=== PATIENT | female | born 1970 | race African-American/Black ===

== ENCOUNTER 2018-12-26 11:54 | Emergency (ER) | payer OTHER ==
[~2018-12-26] VITALS: Ht 167.6 cm; Wt 63.5 kg
[~2018-12-26 11:54] MED LIST: BACTRIM DS TAB1 EAC1 ORAL; KEFLEX500 MG ORAL; NKM; PROAIR HFA8.5 GM INH; PROMETHAZINE-D118 ML ORAL; TESSALON PERLE100 M2 ORAL; ZITHROMAX250 MG ORAL
[2018-12-26 12:13] VITALS: BP 113/74
--- NOTE | 2018-12-26 12:23 | NUR ---
ED Nurse Note: PT FROM HOME WALKED IN DUE TO VAGINAL PAIN X 2 DAYS. DENIES VAGINAL BLEEDING OR DISCAHRGE. LAST SEUAL INTERCOURSE ABOUT 3 WEEKS AGO. AAO X 4, AND AMBULATORY.
[2018-12-26] MEDS ORDERED: Omnipaque-300 100ml vial INJ PRN (12:45)
--- NOTE | 2018-12-26 13:06 | NUR ---
ED Nurse Note: COLLECTED BLOOD/URINE THEN SENT.
--- NOTE | 2018-12-26 13:32 | Emergency Room Report ---
History of Present Illness General Chief Complaint: Pain Present Illness HPI 48-year-old female with history of ovarian cyst here complaining of 2 days of sudden onset of a 10 out of 10 vaginal pain. Patient is rating the pain 10 out of 10 and reporting it is shooting. Denies any urinary symptoms such as dysuria and frequency. Denies vaginal discharge and pruritus. Patient reports that she was last sexually active 3 weeks ago. Last menstrual period was 3 weeks ago and regular. Patient is sitting comfortably with stable vital signs. Denies syncope, diffuse abdominal pain, chest pain and shortness of breath. Patient complains of occasional nausea x2 days. Denies diarrhea and other associated symptoms. Has taken ibuprofen for symptom relief. Denies hematuria , vaginal bleeding, spotting, cramping. Allergies: Coded Allergies: No Known Allergies (Unverified , 02/08/14) Patient History Past Medical History: see triage record Past Surgical History: unable to obtain Pertinent Family History: none Last Menstrual Period: 12/06/2018 Now: No - tubal ligation 1997 : 4 Para: 4 Immunizations: UTD Reviewed Nursing Documentation: PMH: Agreed; PSxH: Agreed Review of Systems All Other Systems: negative except mentioned in HPI Physical Exam Vital Signs Date Time Temp Pulse Resp B/P (MAP) Pulse Ox O2 Delivery O2 Flow Rate FiO2 12/26/18 12:13 98.1 63 15 113/74 98 Room Air Sp02 EP Interpretation: reviewed, normal General Appearance: no apparent distress, alert, GCS 15, non-toxic Head: normocephalic, atraumatic Eyes: bilateral eye normal inspection, bilateral eye PERRL ENT: hearing grossly normal, normal pharynx, no angioedema, normal voice Neck: full range of motion, supple, supple/symm/no masses Respiratory: chest non-tender, lungs clear, normal breath sounds, no wheezing, speaking full sentences Cardiovascular #1: regular rate, rhythm, no edema, no murmur, normal capillary refill Gastrointestinal: normal bowel sounds, non tender, soft, non-distended, no guarding, no rebound Rectal: deferred Genitourinary: no CVA tenderness Musculoskeletal: back normal, digits/nails normal, gait/station normal, non- tender, no calf tenderness, pelvis stable Neurologic: alert, oriented x3, responsive, motor strength/tone normal, sensory intact, speech normal Psychiatric: judgement/insight normal, memory normal, mood/affect normal, no suicidal/homicidal ideation Skin: no rash Lymphatic: no adenopathy Medical Decision Making PA Attestation All my diagnosis and treatment plans were reviewed ad discussed with my supervising physician Dr. Curry Diagnostic Impression: Primary Impression: Pelvic pain ER Course 48-year-old female with history of ovarian cyst here complaining of 2 days of sudden onset of a 10 out of 10 vaginal pain. Patient is rating the pain 10 out of 10 and reporting it is shooting. Denies any urinary symptoms such as dysuria and frequency. Denies vaginal discharge and pruritus. Patient reports that she was last sexually active 3 weeks ago. Last menstrual period was 3 weeks ago and regular. Patient is sitting comfortably with stable vital signs. Denies syncope, diffuse abdominal pain, chest pain and shortness of breath. Patient complains of occasional nausea x2 days. Denies diarrhea and other associated symptoms. Has taken ibuprofen for symptom relief. Denies hematuria , vaginal bleeding, spotting, cramping. Ddx considered but are not limited to: appendicitis, cholecystis, gastritis, gastroenteritis, UTI, pyelonephritis, SBO, diverticulitis, influenza with GI manifestation,uterine fibroids, ruptured ovarian cyst, non-ruptured ovarian cyst Vital signs: are WNL, pt. is afebrile H&PE are most consistent with: pelvic pain ORDERS: abdominal CT, cbc, cmp, ua, urine preg, ibuprofen ED INTERVENTIONS: motrin DISCHARGE: At this time pt. is stable for d/c to home. Will provide printed patient care instructions, and any necessary prescriptions. Care plan and follow up instructions have been discussed with the patient prior to discharge. Take medication as directed, follow-up with your EMPLOYEE DEVELOPMENT DIRECTOR for further assessment. At this time no uterine fibroids or ovarian cyst noted. You may benefit from further work-up by your POLITICAL SCIENCE PROFESSOR and transvaginal ultrasound. If worsening symptoms return to the emergency room. CT/MRI/US Diagnostic Results CT/MRI/US Diagnostic Results : Imaging Test Ordered: ct abd pelvis with contrast Impression CT ABDOMEN & PELVIS With Contrast: Question possible mild wall thickening and pericolonic stranding along the ascending colon and hepatic flexure, difficult to exclude a mild colitis, clinically correlate No bowel dilation or free air Normal caliber appendix without secondary signs Trace pelvic free fluid Small band of atelectasis or scar at the left base Abdominal solid organs, gallbladder and abdominal aorta appear within limits Last Vital Signs Date Time Temp Pulse Resp B/P (MAP) Pulse Ox O2 Delivery O2 Flow Rate FiO2 12/26/18 12:13 98.1 63 15 113/74 (87) 98 Room Air Disposition: HOME, SELF-CARE Condition: Stable Patient Instructions: Pelvic Pain, Female, [id number] Additional Instructions: Take medication as directed, follow-up with your EMPLOYEE DEVELOPMENT DIRECTOR for further assessment. At this time no uterine fibroids or ovarian cyst noted. You may benefit from further work-up by your POLITICAL SCIENCE PROFESSOR and transvaginal ultrasound. If worsening symptoms return to the emergency room. Matt Loza Dec 26, 2018 13:32
[2018-12-26 13:45] LABS: APPEARANCE,URINE CLEAR; BILIRUBIN, URINE NEGATIVE (NEGATIVE); COLOR,URINE PALE YELLOW; GLUCOSE, URINE (UA) NEGATIVE (NEGATIVE); KETONES,URINE NEGATIVE (NEGATIVE); LEUKOCYTE ESTERASE ,URINE NEGATIVE (NEGATIVE); NITRITE,URINE NEGATIVE (NEGATIVE); PH,URINE 7 (4.5-8.0); PROTEIN,URINE NEGATIVE (NEGATIVE); UROBILINOGEN,URINE NORMAL MG/DL (0.0-1.0)
[2018-12-26 13:51] LABS: BASOPHILS % (AUTO) 1.6 % (0.0-2.0); EOSINOPHILS % (AUTO) 0.7 % (0.0-3.0); HEMATOCRIT 39.5 % (37.0-47.0); HEMOGLOBIN 12.7 G/DL (12.0-16.0); LYMPHOCYTES % (AUTO) 34.4 % (20.0-45.0); MEAN CORPUSCULAR VOLUME 80 FL (80-99); MONOCYTES % (AUTO) 7.8 % (1.0-10.0); NEUTROPHILS % (AUTO) 55.5 % (45.0-75.0); PLATELET COUNT 251 K/UL (150-450); RED BLOOD COUNT 4.92 M/UL (4.20-5.40); RED CELL DISTRIBUTION WIDTH 14.1 % (11.6-14.8); WHITE BLOOD COUNT 7.2 K/UL (4.8-10.8)
[2018-12-26 13:54] LABS: ANION GAP 3 mmol/L (5-15); BLOOD UREA NITROGEN 9 mg/dL (7-18); CARBON DIOXIDE 35 MMOL/L (21-32); CHLORIDE 106 MMOL/L (98-107); CREATININE 0.8 MG/DL (0.55-1.30); POTASSIUM 3.9 MMOL/L (3.5-5.1); SODIUM 143 MMOL/L (136-145)
[2018-12-26 13:59] LABS: ALANINE AMINOTRANSFERASE 16 U/L (12-78); ALBUMIN 4.1 G/DL (3.4-5.0); ALBUMIN/GLOBULIN RATIO 0.9 (1.0-2.7); ALKALINE PHOSPHATASE 42 U/L (46-116); ASPARTATE AMINO TRANSFERASE 14 U/L (15-37); BILIRUBIN,TOTAL 0.5 MG/DL (0.2-1.0)
[2018-12-26 15:00] VITALS: BP 115/79
--- NOTE | 2018-12-26 16:03 | Diagnostic Imaging Report ---
Indication: Abdominal pain Technique: Continuous helical transaxial imaging of the abdomen and pelvis was obtained from the lung bases to the pubic symphysis during intravenous contrast administration. Coronal 2-D reformats were also obtained. Study obtained in a Siemens sensation [address] Automatic Exposure Control was utilized. Total Dose length Product (DLP): 785.[address] Dose Index Volume (CTDIvol): 13.3 mGy Comparison: None Findings: Appendix is retrocecal and appears normal. There is a question of mild wall thickening involving the ascending colon and hepatic flexure of the colon. There is no free fluid or evidence of abscess. No pneumatosis identified. There is mild left basal atelectasis. The pancreas, liver and spleen, kidneys appear normal. There is a cyst posterior right lobe of the liver measuring 1 cm. The adrenal glands are unremarkable. Gallbladder is contracted but unremarkable otherwise. There is no evidence of bowel obstruction. Uterus noted. Few diverticula noted in the sigmoid colon. No evidence of tight diverticulitis. IMPRESSION: Question of a mild wall thickening suggestive of colitis in the ascending colon/hepatic flexure. Correlate clinically. No evidence of abscess. Other incidental findings as above [facility] has communicated the preliminary results to the Emergency Department. Their findings are largely concordant with this report. The CT scanner at [facility] is accredited by the [employer] and the scans are performed using dose optimization techniques as appropriate to a performed exam including Automatic Exposure control.
[2018-12-26] MEDS ORDERED: IBU800 MG PO (16:17)
[2018-12-26 16:22] VITALS: BP 127/80
--- NOTE | 2018-12-26 16:22 | NUR ---
ER DISCHARGE NOTE: Patient is cleared to be discharged per PA, pt is aox4, on room air, with stable vital signs. pt was given dc and prescription instructions, pt was able to verbalize understanding, pt id band and iv site removed without complications. pt is able to ambulate with steady gait. pt took all belongings.
== END 2018-12-26 16:37 | disposition home or self-care (01) ==
LOC: EMR 12:51
DX: R10.2 Pelvic and perineal pain (principal); R11.0 Nausea
CPT/HCPCS: 36415; 74177; 80053; 81001; 81025; 85025; Q9967; Z7502; 99284